=== PATIENT | female | born 1960 | race Caucasian/White ===

== ENCOUNTER 2024-06-09 17:35 | Observation (INO) | payer BC, SELFPAY ==
[2024-06-09] VITALS (14 sets, daily range): BP systolic 152–191; BP diastolic 67–83; PULSE 56–69; RESP 12–18; TEMP 36.5–36.6; O2SAT 95–98; BMI 24.8; BMI 25.4
--- NOTE | 2024-06-09 17:57 | CRLHL7_ITS ---
For Patients: As a result of the Century Cures Act, medical imaging exams and procedure reports are released immediately into your electronic medical record. You may view this report before your referring provider. If you have questions, please contact your health care provider. CLINICAL HISTORY: Left upper extremity and facial numbness. TECHNIQUE: Standard helical CT image acquisition through the neck was performed after intravenous contrast bolus enhancement. 3D and MIP reconstructions were performed at a separate workstation and permanently archived. COMPARISON: None available. FINDINGS: The origins of the great vessels from the aortic arch are patent. The common carotid arteries are patent. No significant luminal stenoses of the proximal ICAs by NASCET criteria. The more distal cervical segments of the ICAs are patent. Corrugated morphology of the cervical ICAs is suggestive of underlying fibromuscular dysplasia. The origins and cervical segments of the vertebral arteries are patent. IMPRESSION: 1. Patent cervical arterial vasculature without hemodynamically significant luminal stenosis. 2. Corrugated morphology of the cervical ICAs is suggestive of underlying fibromuscular dysplasia. Please note that all CT scans at this facility use dose modulation, iterative reconstruction, and/or weight-based dosing when appropriate to reduce radiation dose to as low as reasonably achievable. Dictated by Jesse Estes MD @ 06/10/2024 12:31:57 PM (Electronically Signed)
--- NOTE | 2024-06-09 17:57 | CRLHL7_ITS ---
For Patients: As a result of the Century Cures Act, medical imaging exams and procedure reports are released immediately into your electronic medical record. You may view this report before your referring provider. If you have questions, please contact your health care provider. CLINICAL HISTORY: Left upper extremity and facial numbness. TECHNIQUE: Standard helical CT image acquisition through the head following the administration of intravenous contrast was performed. 3D and MIP reconstructions were performed at a separate workstation and permanently archived. COMPARISON: None available. FINDINGS: No intracranial proximal large vessel occlusion or flow-limiting luminal stenosis. No evidence of cerebral aneurysm. No findings to suggest an arterial-venous shunting lesion. IMPRESSION: No intracranial proximal large vessel occlusion, flow-limiting luminal stenosis, or cerebral aneurysm. Please note that all CT scans at this facility use dose modulation, iterative reconstruction, and/or weight-based dosing when appropriate to reduce radiation dose to as low as reasonably achievable. Dictated by Jesse Estes MD @ 06/10/2024 12:33:42 PM (Electronically Signed)
--- NOTE | 2024-06-09 17:57 | CRLHL7_ITS ---
For Patients: As a result of the Century Cures Act, medical imaging exams and procedure reports are released immediately into your electronic medical record. You may view this report before your referring provider. If you have questions, please contact your health care provider. INDICATION: Left arm and facial numbness. COMPARISON: None. TECHNIQUE: CT of the brain / head without intravenous contrast. Multiplanar axial, coronal, and sagittal reformats were reconstructed. FINDINGS: No intracranial hemorrhage. Normal appearance of the white matter. No acute or subacute cortically based infarct. No mass or mass effect. Normal ventricles. No skull fractures. No worrisome focal bone lesion. Chronic left maxillary sinusitis. IMPRESSION: Normal head CT. Case discussed with Dr. Neely at 6:25 p.m. on 06/09/2024. Please note that all CT scans at this facility use dose modulation, iterative reconstruction, and/or weight-based dosing when appropriate to reduce radiation dose to as low as reasonably achievable. Dictated by Zaira Merchant MD @ 06/09/2024 6:26:09 PM (Electronically Signed)
[2024-06-09 18:10] LABS: Creatinine, Point-of-Care* 0.8 mg/dl (0.6-1.3)
--- NOTE | 2024-06-09 18:12 | ED_ITS ---
HPI - Neuro Symptoms/Deficit General Time Seen by Provider: 17:37 Date Seen: 06/09/24 Chief Complaint: Neuro Symptoms/Altered Deficit Stated Complaint: Arm/face stiffness, shakingness Time Seen by Provider: 06/09/24 17:37 Source: patient and RN notes reviewed Mode of arrival: ambulatory Limitations: no limitations History of Present Illness HPI Narrative: This 64-year-old female is seen upon nurses request for concern of neurologic symptoms. She was just sitting at the table and about 4:45 p.m. noted she just felt a concrete feeling in her left arm and her left hand and arm felt tingly and sleep. She states she was able to move her hand in arm. Notice no ability to not use it or move it but it felt funny almost like it was asleep. She had a 2nd episode about 20 minutes later, both of these spells maybe lasted 5 minutes. That spell was noted to have a little sensation in her left lower jaw or face area, just felt funny, not necessarily number tingly. She noted no visual changes with this at that time but at 11:30 a.m. this morning, noted a wavy circular pattern in her left vision. She has had these before, does not get headaches with them, has been evaluated by an eye doctor. There was some discussion of possible migraines but she states she never gets headaches with them. She has been going to a chiropractor for back pain, denies any neck adjustments. At 1 point she did stand up when she had the symptoms and she states both of her feet felt funny. She noted no chest pain, no shortness of breath, no irregularity of her heartbeat. She is never been a smoker. She maybe have a couple alcoholic beverages a month. She is on Dupixent for sinus polyps. Related Data Home Medications ?Medication ?Instructions ?Recorded ?Confirmed beclomethasone dipropionate 80 inhalation 05/11/22 06/22/22 mcg/actuation HFA breath activated aerosol (Qvar RediHaler) ondansetron 4 mg disintegrating 4 mg PO PRN 05/11/22 06/22/22 tablet ranitidine HCl 15 mg/mL oral syrup 15 mg PO BID 05/11/22 06/22/22 simvastatin 20 mg tablet 20 mg PO .Bedtime 11/22/22 01/03/23 Allergies Allergy/AdvReac Type Severity Reaction Status Date / Time amoxicillin Allergy Intermediate Rash Verified 06/09/24 18:37 Sulfa (Sulfonamide Allergy Intermediate rash/knee Verified 06/09/24 18:37 Antibiotics) swollen Review of Systems Status of ROS: Reports: 6 or more systems reviewed and unremarkable except as noted in History and below [facility] Social History Smoking Status: Never smoker Non-prescribed substance use: denies use Exam Const: Vital Signs, click to edit/add: Vital Signs - 24 hr 06/09/24 17:42 06/09/24 17:57 06/09/24 18:36 Temperature 97.9 F Pulse Rate 66 Pulse Rate [Pulse Oximeter] 69 Respiratory Rate 18 14 Blood Pressure 168/81 H Blood Pressure [Ri ght Upper Arm] 178/80 H Pulse Oximetry 97 96 97 Oxygen Delivery Me thod Room Air 06/09/24 18:37 06/09/24 18:49 06/09/24 19:04 Temperature Pulse Rate 68 67 61 Pulse Rate [Pulse Oximeter] Respiratory Rate 12 18 Blood Pressure 153/75 H 191/83 H Blood Pressure [Ri ght Upper Arm] Pulse Oximetry 97 96 98 Oxygen Delivery Me thod This 64-year-old female is alert, interactive, no apparent distress. Ambulatory into the ED of her own accord. Pupils are equal round reactive, sclerae clear, extraocular muscles intact, no nystagmus. Symmetrical facial function, speech normal, oropharynx normal. Neck is supple, no adenopathy, no thyromegaly masses or nodules. No midline tenderness. Lungs are clear, good air entry, no wheezing or crackles. She is able to sit up, no truncal ataxia. CV regular rate and rhythm, no murmur, normal S1-S2, no S3-S4. She has normal symmetric facial light touch sensation, normal light touch sensation between upper extremities including down to the hands as well as lower extremities. Strength is 5/5 and symmetric throughout hands and upper extremities, same throughout lower extremities. Can lift each leg off the bed and hold for over 5 seconds. No lower extremity edema noted. She has no tremors. She has normal rapid alternating finger movements. She has normal [id number], no arms way, no dysmetria noted. Documenting provider has reviewed patient's vital signs: yes Course Course ED Course: Did agree with nursing staff to have me come immediately and assessed. I do think we should proceed with stroke code and get the neuro imaging done. Staff does not need to page Neurology immediately as this is sensory and there are some components that do not point to neurologic disease, like both feet feeling affected. I will talk to them eventually. We will have her on cardiac monitoring, pulse oximetry, obtain EKG to ensure no arrhythmia. Will get appropriate baseline labs. Her blood pressure is higher here on arrival with 178/80, could point to stress and anxiety being in the ED, certainly makes vascular phenomenon like [employer] disease more suspect as well despite atypical features. Reevaluation(s) Time of Reevaluation #1: 18:57 Reevaluation #1: Reviewed with patient that her CT imaging in CT angiogram imaging tests are not showing any concern of acute pathology at this time. It is possible that there could be a small distribution stroke that would not be candidate for any thrombolytics. Reviewed with her that I have talked to the stroke neurologist. We are recommending full aspirin and then potentially an 81 mg aspirin daily after that depending on workup. We are able to do MR brain tomorrow but not until noon. It is recommended by Stroke Neurology that the patient have this, be monitored on telemetry overnight. Patient states she cannot swallow pills, will cancel did 325 mg enteric-coated aspirin and give her 324 mg chewable. She is in agreement with staying in the hospital overnight. Consultations Consultation #1: Staff did page out Neurology right away. Spoke with Dr. Neely from [place] [facility]. She does agree with proceeding with a neuro imaging, I will contact her back once we have our workup done and had chance to monitor patient's symptoms. We will see if she has any staggering symptoms are worsening symptoms while here. Certainly will update her if needed. At this time, she is thinking that patient should potentially stay overnight for telemetry to rule out arrhythmia and have MR imaging in the morning. There is a possibility that we might be able to get MRI tomorrow morning but I cannot guarantee it. Otherwise, we would not have imaging until Tuesday. 18:41 Dr. Neely did call me back. She states the CT angio looks normal, the head CT was called to her. We discussed this case. I will let her know if we can get MR imaging tomorrow but do believe it is possible. She is recommending MRI tomorrow. If there neurovascular changes consistent with traditional small- vessel ischemic disease, she would recommend 81 mg daily of aspirin and consider this TIA. Patient would be encouraged to continue with risk factor reduction and further workup but could be considered outpatient such as echo. If there are changes that could be consistent with vascular disease of migraines, it may be considered on leaving her on 81 mg of aspirin but that case scenario is not certainly clear. She was able to see that the patient does have hyperlipidemia. Time: 18:03 Vital Signs Vital signs: Initial Vital Signs Temperature 97.9 F 06/09/24 17:42 Temperature Source Temporal Artery Scan 06/09/24 17:42 Pulse Rate 69 06/09/24 17:42 Pulse Rhythm Regular 06/09/24 17:42 Respiratory Rate 18 06/09/24 17:42 Blood Pressure 178/80 H 06/09/24 17:42 Blood Pressure Mean 112 H 06/09/24 17:42 Blood Pressure Position Supine 06/09/24 17:42 Pulse Oximetry 97 06/09/24 17:42 Oxygen Delivery Method Room Air 06/09/24 17:42 Vital Signs Temperature 97.9 F 06/09/24 17:42 Pulse Rate 69 06/09/24 17:42 Respiratory Rate 18 06/09/24 17:42 Blood Pressure 178/80 H 06/09/24 17:42 Pulse Oximetry 97 06/09/24 17:42 Oxygen Delivery Method Room Air 06/09/24 17:42 Temperature 97.9 F 06/09/24 17:42 Pulse Rate 61 06/09/24 19:04 Respiratory Rate 18 06/09/24 19:04 Blood Pressure 191/83 H 06/09/24 19:04 Pulse Oximetry 98 06/09/24 19:04 Oxygen Delivery Method Room Air 06/09/24 17:42 Medications Administered Medications: Generic Name Dose Route Start Last Admin Trade Name Freq PRN Reason Stop Dose Admin Aspirin 324 mg 06/09/24 18:57 06/09/24 19:03 Aspirin 81 Mg Tab.Chew PO 06/09/24 18:58 324 mg ONCE ONE Administration Discontinued Medications Generic Name Dose Route Start Last Admin Trade Name Freq PRN Reason Stop Dose Admin Aspirin 325 mg 06/09/24 18:53 06/09/24 18:59 Aspirin Ec 325 Mg Tablet PO 06/09/24 18:54 Not Given ONCE ONE MDM - Neuro Symptoms/Deficit Lab Data Attestation: I reviewed the patient's lab results. Labs: Lab Results 06/09/24 06/09/24 06/09/24 Range/Units 18:03 18:08 18:09 WBC 6.63 (4.50-11.00) K/uL RBC 4.81 (4.00-5.20) m/uL Hgb 13.8 (12.0-16.0) gm/dL Hct 41.8 (33.0-51.0) % MCV 87 (80-100) fL MCH 29 (26-34) pg MCHC 33 (32-36) gm/dL RDW Coeff of Prince 12.5 (11.5-15.5) % Plt Count 344 (140-440) K/uL Neut % (Auto) 51.3 (42.0-72.0) % Lymph % (Auto) 32.0 (20-44) % [place] % (Auto) 10.3 (0.0-11.0) % Eos % (Auto) 5.3 (0.0-7.0) % Baso % (Auto) 0.9 (0.0-3.0) % Neut # (Auto) 3.41 (1.7-7.0) K/uL Lymph # (Auto) 2.12 (0.90-2.90) K/uL [place] # (Auto) 0.70 (0.00-0.90) K/UL Eos # (Auto) 0.35 (0.00-0.50) K/uL Baso # (Auto) 0.06 (0.00-0.30) K/uL Abs Immat Gran (auto) 0.01 (0.00-0.30) K/uL Imm/Tot Granulo (auto) 0.2 % INR 0.88 L (0.91-1.10) APTT 27 (23-33) Seconds Sodium 139 (135-149) mmol/L Potassium 3.9 (3.6-5.1) mmol/L Chloride 107 (96-114) mmol/L Carbon Dioxide 24 (20-32) mmol/L Anion Gap 8 (7-15) mEq/L BUN 22 (7-30) mg/dL Creatinine 0.7 (0.5-1.5) mg/dL Estimated Creat Clear 46.40 Estimated GFR 96 ml/min Glucose 127 H (60-115) mg/dL Calcium 9.9 (8.4-10.6) mg/dL Total Bilirubin 0.4 (0.1-1.5) mg/dL AST 26 (12-35) U/L ALT 31 (4-35) U/L Alkaline Phosphatase 96 (40-150) U/L Troponin I < 0.01 L (0.01-0.04) ng/mL C-Reactive Protein < 0.5 L (0.5-1.0) mg/dL NT-Pro-B Natriuret Pep 137 pg/mL Total Protein 7.6 (6.0-8.3) g/dL Albumin 4.6 (3.3-5.0) g/dL Lab Acknowledgement Test Added POC Creatinine 0.8 (0.6-1.3) mg/dl Imaging Data CT scan - head: Attestation: I have reviewed the pertinent imaging results. Radiologist's impression: Patient: BERYL TUCKER Facility:?[facility] Patient ID:?[id number] Site Patient ID:?[id number]. Site :?[id number] Study:?CT-Head STROKE CODE-06/09/2024 6:20:06 PM Ordering Physician:Jones Frederick Final Report: INDICATION: Left arm and facial numbness. COMPARISON: None. TECHNIQUE: CT of the brain / head without intravenous contrast. Multiplanar axial, coronal, and sagittal reformats were reconstructed. FINDINGS: No intracranial hemorrhage. Normal appearance of the white matter. No acute or subacute cortically based infarct. No mass or mass effect. Normal ventricles. No skull fractures. No worrisome focal bone lesion. Chronic left maxillary sinusitis. IMPRESSION: Normal head CT. Case discussed with Dr. Neely at 6:25 p.m. on 06/09/2024. Please note that all CT scans at this facility use dose modulation, iterative reconstruction, and/or weight-based dosing when appropriate to reduce radiation dose to as low as reasonably achievable. Dictated by Zaira Merchant MD @ 06/09/2024 6:26:09 PM (Electronic Signature) CT- Other: Attestation: I have reviewed the pertinent imaging results. Radiologist's impression: Patient: BERYL TUCKER Facility:?[facility] Patient ID:?[id number] Site Patient ID:?[id number]. Site :?[id number] Study:?CT-Head Angio STROKE CODE WITH 95 CC ISOVUE 370-06/09/2024 6:36:28 PM Ordering Physician:?Don Frederick Preliminary Report: FINDINGS CTA head: No emergent large vessel occlusion or high-grade intracranial arterial stenosis. CTA neck: No flow limiting stenosis. No evidence of cervical arterial dissection. I discussed the findings directly with Dr. Neely at 6:51 p.m., 06/09/2024. Read by:?Luis F Sanchez MD @06/09/2024 6:51:49 PM ECG Data Attestation: I personally reviewed and interpreted this ECG as follows: (Sinus rhythm, 60 beats per minute. Premature atrial complex seen. No evidence of any ischemic change, no infarct.) ECG interpretation date: 06/09/24 ECG interpretation time: 18:35 Discharge Plan Discharge Clinical Impression: Numbness and tingling in left arm Patient Disposition: Admitted As Observation
[2024-06-09 18:13] LABS: Basophils Absolute Auto 0.06 K/uL (0.00-0.30); Basophils Percent Auto 0.9 % (0.0-3.0); Eosinophils Absolute Auto 0.35 K/uL (0.00-0.50); Eosinophils Percent Auto 5.3 % (0.0-7.0); Hematocrit 41.8 % (33.0-51.0); Hemoglobin* 13.8 gm/dL (12.0-16.0); Immature Granulocytes Abs Auto 0.01 K/uL (0.00-0.30); Immature Granulocytes Pct Auto 0.2 %; Lymphocytes Absolute Auto 2.12 K/uL (0.90-2.90); Mean Corpuscular HGB Conc 33 gm/dL (32-36); Mean Corpuscular Hemoglobin 29 pg (26-34); Mean Corpuscular Volume 87 fL (80-100); Monocytes Percent Auto 10.3 % (0.0-11.0); Neutrophils Absolute Auto 3.41 K/uL (1.7-7.0); Neutrophils Percent Auto 51.3 % (42.0-72.0); Platelet Count* 344 K/uL (140-440); RDW Coefficient of Variation % 12.5 % (11.5-15.5); Red Blood Count 4.81 m/uL (4.00-5.20); White Blood Count* 6.63 K/uL (4.50-11.00)
[2024-06-09 18:18] LABS: Slide Review Reflex No
[2024-06-09 18:28] LABS: Albumin* 4.6 g/dL (3.3-5.0); Chloride* 107 mmol/L (96-114); Sodium* 139 mmol/L (135-149)
[2024-06-09 18:29] LABS: Potassium* 3.9 mmol/L (3.6-5.1)
[2024-06-09 18:31] LABS: Alkaline Phosphatase* 96 U/L (40-150); Anion Gap 8 mEq/L (7-15); Aspartate Amino Transferase* 26 U/L (12-35); Bilirubin Total* 0.4 mg/dL (0.1-1.5); Carbon Dioxide* 24 mmol/L (20-32); Creatinine* 0.7 mg/dL (0.5-1.5); Estimated Glomerular Filt Rate 96 ml/min; INR 0.88 (0.91-1.10); Prothrombin Time 12.4 Seconds; Total Protein* 7.6 g/dL (6.0-8.3)
[2024-06-09 18:32] LABS: Alanine Aminotransferase* 31 U/L (4-35); Blood Urea Nitrogen* 22 mg/dL (7-30); Calcium* 9.9 mg/dL (8.4-10.6); Glucose* 127 mg/dL (60-115); Partial Thromboplastin Time* 27 Seconds (23-33)
[2024-06-09 18:35] LABS: C Reactive Protein* < 0.5 mg/dL (0.5-1.0)
[2024-06-09 18:41] LABS: NT Pro B Type NatriureticPept* 137 pg/mL
[2024-06-09 18:44] LABS: Troponin I* < 0.01 ng/mL (0.01-0.04)
--- NOTE | 2024-06-09 18:52 | CRLHL7_ITS ---
For Patients: As a result of the Cures Act, medical imaging exams and procedure reports are released immediately into your electronic medical record. You may view this report before your referring provider. If you have questions, please contact your health care provider. Indication: Left arm/facial numbness Technique: Multiplanar, multisequence MRI of the brain obtained without contrast. Comparison: CT head 06/09/2024 Findings: No evidence for recent hemorrhage or infarct. No midline shift, hydrocephalus or herniation. Focal gliosis and mild encephalomalacia in the left posterior frontal periventricular white matter, suggestive of chronic lacunar infarct. 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 Severe left maxillary sinus disease with related/polypoid mucosal thickening and air-fluid level. No significant mastoid effusion. Unremarkable orbits. Impression: 1. No evidence of acute intracranial abnormality. 2. Small focus of abnormal signal in the left posterior frontal periventricular white matter, most suggestive of chronic lacunar infarct. 3. 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 4. Findings suspicious for acute left maxillary sinusitis. Dictated by Claire Christensen MD @ 06/10/2024 11:56:47 AM (Electronically Signed)
[2024-06-09] MEDS: ASPIRIN 81 MG TAB.CHEW 324 MG PO (19:03)
[2024-06-09 19:35] LABS: Erythrocyte SedimentationRate* 10 mm/hr (2-20)
--- NOTE | 2024-06-09 23:40 | P.IMHP_ITS ---
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 for which she presented to the emergency department. Many days in a week she wakes up with left hand numbness and tingling or notices that it is becoming numb and tingling soon after waking up. She will often shake this out and it gets better. She has never had this happen in the afternoon or evening until today when she was just sitting at the table and suddenly noticed that her left arm felt funny like it was asleep or made of concrete. This lasted very briefly and then she was able to move it again, but then it happened again 20 minutes later. She noted that the 2nd time it happened it seemed to also spread into her left lower jaw and down her left leg. She tells me that she has visual aura as about once every month and a half and did have a visual aura around 11 30 this morning that was pretty typical for her. It was away the circular pattern in her left vision that had a ?Ragtag? appearance. Patient made a zigzag in the air as she said this. She never gets any headaches with these. She does not have a headache today. She also has c hronic dysphagia and has not noted any change in those symptoms. She is unable to take pills and typically does not take pills anyway because she fears the side effects so greatly. Such is the case with a statin that she was prescribed many years ago for hyperlipidemia. She took it for few days and then stopped altogether. She has been going to the chiropractor recently for low back pain. She tells me that the chiropractor does not do any adjustments and has only been using an activator massage gun on her back. She had 2 of these appointments in the past week. Review of Systems Status of ROS: Reports: 10 or more systems reviewed and unremarkable except as noted in History and below [facility] Medical History (Updated 06/10/24 @ 00:15 by Judith Velez MD) Visual aura ?H53.9 - Unspecified visual disturbance (ICD-10) Dysphagia ?R13.10 - Dysphagia, unspecified (ICD-10) Fibrocystic disease of left breast ?N60.12 - Diffuse cystic mastopathy of left breast (ICD-10) Pure hypercholesterolemia (~2008) ?E78.00 - Pure hypercholesterolemia, unspecified (ICD-10) Vitamin D deficiency ?E55.9 - Vitamin D deficiency, unspecified (ICD-10) Atypical squamous cells of undetermined significance on cytologic smear of cerv ix (ASC-US) (~01/2021) ?R87.610 - Atypical squamous cells of undetermined significance on cytologic smear of cervix (ASC-US) (ICD-10) Surgical History (Updated 06/09/24 @ 23:48 by Judith Velez MD) S/P tonsillectomy (~1959) ?Z90.89 - Acquired absence of other organs (ICD-10) Family History (Updated 06/09/24 @ 23:52 by Judith Velez MD) Father Myocardial infarction Prostate cancer Mother Osteoporosis Brother Myocardial infarction Uncle Colon cancer Sister Stroke Sister High cholesterol Social History (Updated 06/09/24 @ 23:54 by Judith Velez MD) Narrative: . Denies tobacco, EtOH, recreational drug use. What is your current living situation?: I presently have a place to live Problems where you live: no known problems Problems where you live details: N/A In the past 12 months, utilities in danger of being shut off: no In past 12 months, lack of transportation kept you from medical appts, meetings, work, or getting things needed for daily living: no In the past 12 mos, have been you worried that your food would run out before you had money to buy more?: never true In the past 12 mos, the food you bought just didn't last and you didn't have money to buy more?: never true Highest level of school completed/degree received: high school graduate Smoking Status: Never smoker Second hand tobacco smoke exposure: No How often do you have a drink containing alcohol: monthly or less How often do you have six or more drinks on one occasion: Never AUDIT-C Alcohol total score: 1 Non-prescribed substance use: denies use Caffeine: No How often does anyone, including family, friends and others, physically hurt you : never How often does anyone, including family, friends and others, insult or talk down to you: never How often does anyone, including family, friends and others, threaten you with harm: never How often does anyone, including family, friends and others, scream or curse at you: never service: No Meds Home Medications and Allergies Home Medications ?Medication ?Instructions ?Recorded ?Confirmed ?Type simvastatin 20 mg tablet 20 mg PO .Bedtime 05/11/22 06/09/24 History Home Medication Comments: Does not take statin due to fear of side effects Allergies Allergy/AdvReac Type Severity Reaction Status Date / Time amoxicillin Allergy Intermediate Rash Verified 06/09/24 18:37 Sulfa (Sulfonamide Allergy Intermediate rash/knee Verified 06/09/24 18:37 Antibiotics) swollen Exam Narrative: Exam Narrative: General: No acute distress. Awake alert oriented x3. HEENT: Normocephalic atraumatic, pupils equally round and reactive to light and accommodation. Oropharynx clear. Mucous membranes are moist. No cervical lymphadenopathy, thyromegaly or carotid bruits. No JVD. Cardiovascular: Regular rate and rhythm. No murmurs, gallops, or rubs. Chest: No increased work of breathing. Clear to auscultation bilaterally. No crackles or wheezes. Abdomen: Bowel sounds present. Soft, nondistended, nontender. No hepatosplenomegaly or masses. Extremities: No edema, no cyanosis or clubbing. Skin: No jaundice, no pallor, no rashes. Neuro: There are no focal deficits. Romberg is negative. Gait is within normal limits. Cranial nerves 2-12 are intact. Extraocular movements are full. No nystagmus. No facial asymmetry. Tongue is midline. Peripheral vision and vision are grossly intact. Strength is 5/5 in all 4 extremities. Light touch sensation is intact in face body and extremities. Coordination is intact in upper and lower extremities. Const: Vital Signs, click to edit/add: Vital Signs - 24 hr 06/09/24 17:42 06/09/24 17:57 06/09/24 18:36 Temperature 97.9 F Pulse Rate 66 Pulse Rate [Pulse Oximeter] 69 Pulse Rate [Right Pulse Oximeter] Respiratory Rate 18 14 Blood Pressure 168/81 H Blood Pressure [Ri ght Arm] Blood Pressure [Ri ght Upper Arm] 178/80 H Pulse Oximetry 97 96 97 Oxygen Delivery Me thod Room Air 06/09/24 18:37 06/09/24 18:49 06/09/24 19:04 Temperature Pulse Rate 68 67 61 Pulse Rate [Pulse Oximeter] Pulse Rate [Right Pulse Oximeter] Respiratory Rate 12 18 Blood Pressure 153/75 H 191/83 H Blood Pressure [Ri ght Arm] Blood Pressure [Ri ght Upper Arm] Pulse Oximetry 97 96 98 Oxygen Delivery Me thod 06/09/24 19:30 06/09/24 19:38 06/09/24 20:10 Temperature 97.7 F Pulse Rate 66 Pulse Rate [Pulse Oximeter] Pulse Rate [Right Pulse Oximeter] Respiratory Rate 18 Blood Pressure 181/83 H Blood Pressure [Ri ght Arm] 161/68 H Blood Pressure [Ri ght Upper Arm] Pulse Oximetry 97 96 Oxygen Delivery Me thod Room Air 06/09/24 20:10 06/09/24 22:20 06/09/24 22:20 Temperature Pulse Rate Pulse Rate [Pulse Oximeter] Pulse Rate [Right Pulse Oximeter] Respiratory Rate 18 18 18 Blood Pressure Blood Pressure [Ri ght Arm] Blood Pressure [Ri ght Upper Arm] Pulse Oximetry 96 95 Oxygen Delivery Me thod Room Air Room Air 06/09/24 22:20 06/09/24 23:00 Temperature 97.7 F Pulse Rate 60 Pulse Rate [Pulse Oximeter] Pulse Rate [Right Pulse Oximeter] 56 L Respiratory Rate 18 Blood Pressure Blood Pressure [Ri ght Arm] 152/67 H Blood Pressure [Ri ght Upper Arm] Pulse Oximetry 95 Oxygen Delivery Me thod Room Air Hospitalist - H&P: Result Labs Labs: Short CBC 06/09/24 Range/Units 18:03 WBC 6.63 (4.50-11.00) K/uL Hgb 13.8 (12.0-16.0) gm/dL Hct 41.8 (33.0-51.0) % Plt Count 344 (140-440) K/uL BMP 06/09/24 18:03 Sodium 139 Potassium 3.9 Chloride 107 Carbon Dioxide 24 BUN 22 Creatinine 0.7 Glucose 127 H Calcium 9.9 Cardiac Enzymes 06/09/24 Range/Units 18:03 Troponin I < 0.01 L (0.01-0.04) ng/mL Liver Function 06/09/24 Range/Units 18:03 Total Bilirubin 0.4 (0.1-1.5) mg/dL AST 26 (12-35) U/L ALT 31 (4-35) U/L Alkaline Phosphatase 96 (40-150) U/L Albumin 4.6 (3.3-5.0) g/dL 06/09/2024 EKG: Sinus rhythm with premature atrial complexes. 60 beats per minute. Otherwise normal EKG. Ordering Physician: Yoly Ochoa M.D. Date of Service: 06/09/24 Procedure(s): CT head/brain wo con Accession Number(s): [id number] cc: Provider,Not a Local; Yoly Ochoa M.D.~ For Patients: As a result of the Cures Act, medical imaging exams and procedure reports are released immediately into your electronic medical record. You may view this report before your referring provider. If you have questions, please contact your health care provider. INDICATION: Left arm and facial numbness. COMPARISON: None. TECHNIQUE: CT of the brain / head without intravenous contrast. Multiplanar axial, coronal, and sagittal reformats were reconstructed. FINDINGS: No intracranial hemorrhage. Normal appearance of the white matter. No acute or subacute cortically based infarct. No mass or mass effect. Normal ventricles. No skull fractures. No worrisome focal bone lesion. Chronic left maxillary sinusitis. IMPRESSION: Normal head CT. Case discussed with Dr. Neely at 6:25 p.m. on 06/09/2024. Please note that all CT scans at this facility use dose modulation, iterative reconstruction, and/or weight-based dosing when appropriate to reduce radiation dose to as low as reasonably achievable. Dictated by Zaira Merchant MD @ 06/09/2024 6:26:09 PM (Electronically Signed) Assessment and Plan Assessment and plan (1) Numbness and tingling in left arm: Problem comment: - Visual auras, left arm and leg parasthesias, all resolved quickly. No headaches. Migraine vs TIA vs other. CT head, CTA head/neck negative. MRI and ECHO pending. - Appreciate stroke neuro's recommendations. - She was able to eat chicken soup and drink water without difficulty. I will start a heart healthy diet, and I do not think she needs IVF since she will be able to eat. She does have a h/o dysphagia, but other than refusing to attempt to swallow pills, this does not appear to affect her oral intake at present. I have also ordered a speech therapy evaluation for swallow evaluation, but this may not be able to be done until tuesday or later, and I think this could be done as an outpatient as these are chronic, not acute symptoms. 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 Encourage ambulation and use TEDs and SCDs. - fasting lipid panel and Hgba1C ordered. - Since symptoms are resolved, benefit of PT/OT is unclear, will hold off. Status: Acute (2) Pure hypercholesterolemia: Problem comment: - untreated, self discontinued statin due to fear of side effects, unlikely that she will be willing to restart this. I spoke with her about how her risk of stroke is higher than risk of dementia from statin and encouraged reconsideration of this medicine. Status: Chronic (3) Dysphagia: Problem comment: - As above. Also, I have encouraged patient to reconsider outpatient EGD. Status: Chronic (4) Visual aura: Status: Chronic
[2024-06-10 00:24] VITALS: PULSE 56
[2024-06-10 03:00] VITALS: BP 133/68; PULSE 53; RESP 18; TEMP 36.6; O2SAT 96
--- NOTE | 2024-06-10 05:32 | PC.NURSE ---
Shift note: Pt arrived at the unit at 1999 on a wheelchair. Alert and oriented. She reported having transient heaviness in the left arm and leg which happened 2x yesterday. On admission, she reported that she no longer experience any of those symptoms. She is independent in room, alert and oriented. 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 Bp was elevated on admission. She denied headache, fever or visual changes. No neurological deterioration observed. Patient had adequate sleep.
[2024-06-10 06:46] LABS: Cholesterol* 265 mg/dL (90-199); HDL Cholesterol* 62 mg/dL (>=50); LDL Cholesterol Calculated 183 mg/dL (<100); Triglycerides* 99 mg/dL (40-149)
[2024-06-10 07:00] VITALS: BP 136/64; PULSE 53; PULSE 58; RESP 16; RESP 18; TEMP 36.7; O2SAT 96
[2024-06-10 09:06] LABS: Hemoglobin A1C* 5.8 % (0-5.6)
[2024-06-10] MEDS: ASPIRIN 81 MG TAB.CHEW PO (09:19)
[2024-06-10] MEDS: SODIUM CHLORIDE 0.9 % (FLUSH) 10 ML SYRINGE 5 ML IVF (09:20)
[2024-06-10 11:00] VITALS: BP 139/73; PULSE 64; RESP 16; TEMP 36.8; O2SAT 94
--- NOTE | 2024-06-10 15:00 | PC.NURSE ---
Discharge Summary: Patient pleasant and cooperative. Afebrile. Denies pain. Denies any heaviness or numbness to left side. Up independently in room. Tolerating regular diet with no nausea. Tele showing NSR. Patient discharged home at 1454 with all personal belongings accompanied by spouse. Discharge instructions including diagnosis, medications and follow up appointment discussed with patient and voiced understanding.
--- NOTE | 2024-06-10 15:36 | PM.DS1 ---
DS: Providers Provider Date Seen: 06/10/24 Date of admission: 06/09/24 19:47 Primary care physician: Not a Local Provider Admitting Clinician: Judith Velez MD Attending Physician on discharge: Tahir Day MD Date of Discharge: 06/10/24 DS: Diagnosis Discharge Diagnosis (1) Visual aura: Status: Chronic Problem details: Suspicious for migraine (2) Dysphagia: Status: Chronic Problem details: Consider outpatient workup if ongoing symptoms (3) Pure hypercholesterolemia: Status: Chronic Problem details: In light of evidence of old stroke and marked hyperlipidemia I recommend initiating treatment with rosuvastatin 20 mg daily (4) Numbness and tingling in left arm: Status: Acute Problem details: - Visual auras, left arm and leg parasthesias, all resolved quickly. No headaches. Migraine vs TIA vs other. CT head, CTA head/neck negative. MRI and ECHO pending. - Appreciate stroke neuro's recommendations. - She was able to eat chicken soup and drink water without difficulty. I will start a heart healthy diet, and I do not think she needs IVF since she will be able to eat. She does have a h/o dysphagia, but other than refusing to attempt to swallow pills, this does not appear to affect her oral intake at present. I have also ordered a speech therapy evaluation for swallow evaluation, but this may not be able to be done until tuesday or later, and I think this could be done as an outpatient as these are chronic, not acute symptoms. 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 Encourage ambulation and use TEDs and SCDs. - fasting lipid panel and Hgba1C ordered. - Since symptoms are resolved, benefit of PT/OT is unclear, will hold off. (5) Chronic sinusitis: Status: Acute Problem details: Suspected to be due to nasal polyposis on Dupixent (6) Lacunar infarction: Status: Acute Problem details: MRI shows old lacunar infarct on the left. On this basis I will recommend statin and aspirin for her to prevent future episodes DS: Summary Hospital Course Hospital Course: Verónica Royal is a 64 year old female with a h/o untreated hypercholesterolemia, chronic intermittent visual auras without migraine and dysphagia for which she declined EGD who had left arm and leg paresthesias this afternoon around 4:45 p.m. for which she presented to the emergency department. Many days in a week she wakes up with left hand numbness and tingling or notices that it is becoming numb and tingling soon after waking up. She will often shake this out and it gets better. She has never had this happen in the afternoon or evening until today when she was just sitting at the table and suddenly noticed that her left arm felt funny like it was asleep or made of concrete. This lasted very briefly and then she was able to move it again, but then it happened again 20 minutes later. She noted that the 2nd time it happened it seemed to also spread into her left lower jaw and down her left leg. She tells me that she has visual aura as about once every month and a half and did have a visual aura around 11 30 this morning that was pretty typical for her. It was away the circular pattern in her left vision that had a ?Ragtag? appearance. Patient made a zigzag in the air as she said this. She never gets any headaches with these. She does not have a headache today. She also has chronic dysphagia and has not noted any change in those symptoms. She is unable to take pills and typically does not take pills anyway because she fears the side effects so greatly. Such is the case with a statin that she was prescribed many years ago for hyperlipidemia. She took it for few days and then stopped altogether. She has been going to the chiropractor recently for low back pain. She tells me that the chiropractor does not do any adjustments and has only been using an activator massage gun on her back. She had 2 of these appointments in the past week. Patient has a history of pansinusitis thought due to nasal polyps. Has been on Dupixent for this. CT and MRI show left maxillary sinusitis. She is asymptomatic without facial pain, fever, nasal discharge, maxillary dental pain. She does not have a history of migraine headaches though he was clinically suspected she may have had 1 yesterday. No previous history of neurologic event or stroke. She does have a history of swallowing troubles were she feels like things get stuck in the back of her throat. She normally crush his pills if she can. She had at upper GI swallow but has declined an EGD to evaluate this. 06/10/2022. She reports feeling fine today. She has no concerns. Patient had a normal preliminary read on her echocardiogram. Her MRI of the brain is as follows: Impression: 1. No evidence of acute intracranial abnormality. 2. Small focus of abnormal signal in the left posterior frontal periventricular white matter, most suggestive of chronic lacunar infarct. 3. 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 4. Findings suspicious for acute left maxillary sinusitis. Status at Discharge Overall status at discharge: patient is back to baseline Time Spent with Patient Time attestation: Total time spent providing and/or coordinating discharge services:45 minutes Time spent: Greater than 30 minutes Exam Narrative: Exam Narrative: She is alert and appears in no distress. Eyes normal. Extraocular movements are full. No facial swelling, nasal discharge. She moves all 4 extremities well. No focal sensory deficits Const: Vital Signs, click to edit/add: Vital Signs - 24 hr 06/09/24 17:42 06/09/24 17:57 06/09/24 18:36 Temperature 97.9 F Pulse Rate 66 Pulse Rate [Pulse Oximeter] 69 Pulse Rate [Right Pulse Oximeter] Respiratory Rate 18 14 Blood Pressure 168/81 H Blood Pressure [Ri ght Arm] Blood Pressure [Ri ght Upper Arm] 178/80 H Pulse Oximetry 97 96 97 Oxygen Delivery Me thod Room Air 06/09/24 18:37 06/09/24 18:49 06/09/24 19:04 Temperature Pulse Rate 68 67 61 Pulse Rate [Pulse Oximeter] Pulse Rate [Right Pulse Oximeter] Respiratory Rate 12 18 Blood Pressure 153/75 H 191/83 H Blood Pressure [Ri ght Arm] Blood Pressure [Ri ght Upper Arm] Pulse Oximetry 97 96 98 Oxygen Delivery Me thod 06/09/24 19:30 06/09/24 19:38 06/09/24 20:00 Temperature Pulse Rate 66 Pulse Rate [Pulse Oximeter] Pulse Rate [Right Pulse Oximeter] 67 Respiratory Rate Blood Pressure 181/83 H Blood Pressure [Ri ght Arm] Blood Pressure [Ri ght Upper Arm] Pulse Oximetry 97 Oxygen Delivery Me thod 06/09/24 20:10 06/09/24 20:10 06/09/24 21:00 Temperature 97.7 F Pulse Rate Pulse Rate [Pulse Oximeter] Pulse Rate [Right Pulse Oximeter] 58 L Respiratory Rate 18 18 Blood Pressure Blood Pressure [Ri ght Arm] 161/68 H Blood Pressure [Ri ght Upper Arm] Pulse Oximetry 96 96 Oxygen Delivery Me thod Room Air Room Air 06/09/24 22:00 06/09/24 22:20 06/09/24 22:20 Temperature Pulse Rate Pulse Rate [Pulse Oximeter] Pulse Rate [Right Pulse Oximeter] 58 L Respiratory Rate 18 18 Blood Pressure Blood Pressure [Ri ght Arm] Blood Pressure [Ri ght Upper Arm] Pulse Oximetry 95 Oxygen Delivery Me thod Room Air 06/09/24 22:20 06/09/24 23:00 06/10/24 00:24 Temperature 97.7 F Pulse Rate 60 Pulse Rate [Pulse Oximeter] Pulse Rate [Right Pulse Oximeter] 56 L 56 L Respiratory Rate 18 Blood Pressure Blood Pressure [Ri ght Arm] 152/67 H Blood Pressure [Ri ght Upper Arm] Pulse Oximetry 95 Oxygen Delivery Me thod Room Air 06/10/24 03:00 06/10/24 07:00 06/10/24 07:00 Temperature 97.8 F Pulse Rate 53 L Pulse Rate [Pulse Oximeter] Pulse Rate [Right Pulse Oximeter] 53 L Respiratory Rate 18 Blood Pressure Blood Pressure [Ri ght Arm] 133/68 Blood Pressure [Ri ght Upper Arm] Pulse Oximetry 96 96 Oxygen Delivery Wi thod Room Air Room Air 06/10/24 07:00 06/10/24 07:00 06/10/24 11:00 Temperature 98.0 F 98.2 F Pulse Rate Pulse Rate [Pulse Oximeter] Pulse Rate [Right Pulse Oximeter] 53 L 58 L 64 Respiratory Rate 18 16 16 Blood Pressure Blood Pressure [Ri ght Arm] 136/64 139/73 Blood Pressure [Ri ght Upper Arm] Pulse Oximetry 96 94 Oxygen Delivery Me thod Room Air Room Air Documenting provider has reviewed patient's vital signs: yes DS: Data Data Completed and Pending Labs on day of discharge: Labs from last 24 hours 06/10/24 06/09/24 06/09/24 05:53 18:09 18:08 WBC RBC Hgb Hct MCV MCH MCHC RDW Coeff of Prince Plt Count Neut % (Auto) Lymph % (Auto) [place] % (Auto) Eos % (Auto) Baso % (Auto) Neut # (Auto) Lymph # (Auto) [place] # (Auto) Eos # (Auto) Baso # (Auto) Abs Immat Gran (auto) Imm/Tot Granulo (auto) ESR INR APTT Sodium Potassium Chloride Carbon Dioxide Anion Gap BUN Creatinine Estimated Creat Clear Estimated GFR Glucose Hemoglobin A1c 5.8 H Calcium Total Bilirubin AST ALT Alkaline Phosphatase Troponin I C-Reactive Protein NT-Pro-B Natriuret Pep Total Protein Albumin Triglycerides 99 Cholesterol 265 H LDL Cholesterol, Calc 183 H HDL Cholesterol 62 Lab Acknowledgement Test Added POC Creatinine 0.8 06/09/24 18:03 WBC 6.63 RBC 4.81 Hgb 13.8 Hct 41.8 MCV 87 MCH 29 MCHC 33 RDW Coeff of Prince 12.5 Plt Count 344 Neut % (Auto) 51.3 Lymph % (Auto) 32.0 [place] % (Auto) 10.3 Eos % (Auto) 5.3 Baso % (Auto) 0.9 Neut # (Auto) 3.41 Lymph # (Auto) 2.12 [place] # (Auto) 0.70 Eos # (Auto) 0.35 Baso # (Auto) 0.06 Abs Immat Gran (auto) 0.01 Imm/Tot Granulo (auto) 0.2 ESR 10 INR 0.88 L APTT 27 Sodium 139 Potassium 3.9 Chloride 107 Carbon Dioxide 24 Anion Gap 8 BUN 22 Creatinine 0.7 Estimated Creat Clear 46.40 Estimated GFR 96 Glucose 127 H Hemoglobin A1c Calcium 9.9 Total Bilirubin 0.4 AST 26 ALT 31 Alkaline Phosphatase 96 Troponin I < 0.01 L C-Reactive Protein < 0.5 L NT-Pro-B Natriuret Pep 137 Total Protein 7.6 Albumin 4.6 Triglycerides Cholesterol LDL Cholesterol, Calc HDL Cholesterol Lab Acknowledgement POC Creatinine Discharge Plan Discharge Disposition: Home, Self-Care Date of Admission: 06/09/24 19:47 Attending Provider on Discharge: Bryson Day Primary Care Provider: Provider,Not a Local Condition: Improved Anticipated Discharge Date/Time: 06/10/24 12:57 Discharge Medications: New rosuvastatin 20 mg tablet 20 mg PO DAILY Qty: 30 0RF aspirin 81 mg tablet,chewable 81 mg PO DAILY Qty: 100 0RF Continued Dupixent Pen 300 mg/2 mL pen injector 300 mg subcut Q2W Discharge Orders: Discharge Order (Routine); Ordered 06/10/24 Ordered By: Bryson Day Patient Education: Aspirin (By mouth), Rosuvastatin (By mouth), Cholesterol and Your Health (GEN), Dysphagia (GEN) Activity Level: No Restrictions Discharge Diet: Heart Healthy (2 gm sodium, low fat) Follow Up Appointments: Provider,Not a Local [Primary Care Provider] - (Follow-up in 2-3 weeks for recheck of your high cholesterol, sinus concerns, swallowing concerns, blood pressure) Forms: [facility] Info Instructions
== END 2024-06-10 14:54 | disposition home or self-care (01) ==
LOC: ED 19:11 → MEDSURG 19:48
PROVIDERS: Admitting Provider Family Medicine; Emergency Provider Family Medicine; Visit Provider Family Medicine
DX: R20.0 Anesthesia of skin (principal); R20.2 Paresthesia of skin; E78.00 Pure hypercholesterolemia, unspecified; H53.9 Unspecified visual disturbance; R13.10 Dysphagia, unspecified; J32.9 Chronic sinusitis, unspecified; Z86.73 Personal history of transient ischemic attack (TIA), and cerebral infarction without residual deficits
CPT/HCPCS: 36415; 70450; 70496; 70498; 70551; 80053; 80061; 82565; 83036; 83880; 84484; 85025; 85610; 85651; 85730; 86140; 93005; 93306; 94761; 99284; 99291; G0378; A9270; Q9967